=== PATIENT | female | born 1990 | race Caucasian/White ===

== ENCOUNTER → 2019-01-27 | Outpatient (CLI) | payer SELFPAY ==
--- NOTE | 2019-01-28 09:12 | US ---
EXAM DESCRIPTION: OB ,Early (0-14wks): Ultrasound. CLINICAL HISTORY: 29 years Female first trimester unknown obstetrical history. LMP 11/21/2018. EGA 9 weeks and 4 days with KRISTAL 08/28/2019. COMPARISON: None. TECHNIQUE: Transpelvic scanning through the urine filled bladder: Endovaginal scannin-dimensional and Doppler modes. FINDINGS: Uterus: 10.5 x 7.8 x 6.2 cm equals 265.5 mL. Gestational sac: Normal shape. Mean diameter 4.9 cm corresponds to EGA 11 weeks and 0 days. AFV: Subjectively normal. pole: Mean crown-rump length 2.49 cm corresponds to EGA 9 weeks and 1 day. Yolk sac: 6.3 mm which is borderline enlarged. Subchorionic hemorrhage: None. heart tones: 176 bpm Cul-de-sac: No fluid. Comments: KRISTAL 08/24/2019. Right ovary 3.5 x 3.0 x 2.0 cm. 8.7 mL. Normal waveform and color Doppler vascularity. No dominant cyst.. Small follicles. No adnexal mass or free fluid. Left ovary 3.4 x 3.2 x 2.1 cm. 11.9 mL. Normal waveform and color Doppler vascularity. Thick-walled vascular cyst measuring 2.1 x 2.3 x 1.5 cm consistent with a corpus luteum cyst.. No adnexal mass or free fluid. IMPRESSION: 1. Single living intrauterine gestation. Combined KRISTAL by crown-rump length measurement and gestational sac diameter is 10 weeks and 1 day with KRISTAL 08/24/2019. This is 4 days older than EGA by menstrual dates. Yolk sac is borderline enlarged. No subchorionic hemorrhage. 2. 2.3 cm corpus luteum cyst in the left ovary. Otherwise ovaries are unremarkable. No adnexal mass or free fluid. Electronically signed by: Bryn Mace MD 01/28/2019 9:09 AM CDT
== END ==
LOC: US 15:01
PROVIDERS: ATTEND Family Medicine
DX: Z34.81 Encounter for supervision of other normal pregnancy, first trimester (principal); Z3A.10 10 weeks gestation of pregnancy

== ENCOUNTER → 2019-03-27 | Outpatient (CLI) | payer BC, MEDICAID ==
--- NOTE | 2019-03-27 15:37 | US ---
EXAM DESCRIPTION: OB Level 2 /Maternal: Ultrasound. CLINICAL HISTORY: 29 years Female Gestational size and dates correlation. Early second trimester. anatomic survey.. unknown. By LMP 11/15/2018 , EGA today is 18 weeks, 6 days, with KRISTAL of 08/22/2019. COMPARISON: First trimester OB ultrasound 01/27/2019.. EGA today is 18 weeks, 4 days. KRISTAL is 08/24/2019. TECHNIQUE: Trans-pelvic scanning through the urine-filled bladder; ferguson-scale, color Doppler, and M-mode sonography FINDINGS: Single, intrauterine gestation, breech position. Amniotic fluid volume subjectively normal. SALEEM : Not calculated. Maternal cervix partially visualized. Placenta posterior with no evidence of previa or abruptio. heart rate by M-mode sonography 144 beats/min. limb activity observed. structural survey: Sagittal spine, stomach, urinary bladder, four-chamber heart, kidneys, cerebellum, lateral ventricle, 3-vessel cord and insertion were visualized. Nose/lips not well seen. Ultrasound parameter measurements for estimating gestational age: BPD 3.9 cm 17/5 (weeks/days). Head circumference 14.5 cm 17/5. Abdominal circumference 12.2 cm 17/6. Femur length 2.6 cm 18/0. Ultrasound parameter ratios and cephalic index are within the normal range. Mean estimated gestational age is 17 weeks 6 days, corresponding to KRISTAL of 08/29/2019. Estimated weight based on these measurements is 216+/- 32 g. 10 ounces. 7.1 percentile LMP. Bilateral adnexa with intestinal gas; ovaries not seen. IMPRESSION: 1. Single, living, intrauterine gestation in breech presentation. Amniotic fluid volume subjectively normal, and maternal cervix partially visualized. Placenta posterior with no evidence of previa. Structural survey limited by early age. Recommend follow-up anatomic survey 4 week interval.. 2. Estimated gestational age by today's ultrasound examination is 17 weeks 6 days with KRISTAL 08/29/2019. This is this is one week younger than the estimated gestation age by menstrual date. 5 days younger than EGA by first trimester ultrasound. 3. Estimated weight is 216 g. 10 ounces. Seventh Percentile by LMP. Electronically signed by: Bryn Mace MD 03/27/2019 3:35 PM [id number]
== END ==
LOC: US 13:18
PROVIDERS: ATTEND Family Medicine
DX: Z34.81 Encounter for supervision of other normal pregnancy, first trimester (principal); Z3A.17 17 weeks gestation of pregnancy